=== PATIENT | male | born 1970 ===

== ENCOUNTER 2018-08-13 10:59 | Emergency (ER) | payer OTHER ==
[2018-08-13 11:21] VITALS: O2SAT 96
[2018-08-13] MEDS ORDERED: Sodium Chloride 0.9% 1,000 ML IV ONE ×2 (11:35→12:50)
[2018-08-13 11:59] LABS: BASO % 0.1 % (0.0-2.0); HEMOGLOBIN 15.5 g/dL (12.0-18.0); LYMPH # 0.5 K/uL (1.0-4.3); LYMPH % 3.5 % (20.0-40.0); MEAN CELL VOLUME 83.9 fL (80.0-94.0); MEAN CORPUSCULAR HEMOGLOBIN 28.9 pg (27.0-31.0); MEAN CORPUSCULAR HGB CONC 34.5 g/dL (33.0-37.0); MEAN PLATELET VOLUME 8.9 fL (7.2-11.7); MONO # 0.5 K/uL (0.0-0.8); MONO % 3.5 % (0.0-10.0); NEUT # 13.3 K/uL (1.8-7.0); NEUT % 92.9 % (50.0-75.0); PLATELET COUNT 199 K/uL (130-400); RBC 5.38 Mil/uL (4.40-5.90); RED CELL DISTRIBUTION WIDTH 13.3 % (11.5-14.5); WHITE BLOOD COUNT 14.3 K/uL (4.8-10.8)
[2018-08-13 12:11] LABS: URINE BACTERIA RARE (<OCC); URINE BILIRUBIN NEGATIVE (NEGATIVE); URINE BLOOD 1+ (NEGATIVE); URINE CLARITY Clear (Clear); URINE COLOR Yellow (YELLOW); URINE GLUCOSE (UA) NORMAL (Normal); URINE LEUKOCYTE ESTERASE NEG Leu/uL (Negative); URINE PROTEIN NEGATIVE (NEGATIVE); URINE UROBILINOGEN NORMAL mg/dL (0.2-1.0)
[2018-08-13 12:12] LABS: ALB/GLOB RATIO 1.5 (1.0-2.1); ALBUMIN 4.3 g/dL (3.5-5.0); ALT/SGPT 49 U/L (21-72); AST/SGOT 35 U/L (17-59); BLOOD UREA NITROGEN 18 mg/dL (9-20); CALCIUM 8.9 mg/dl (8.6-10.4); GFR NON-AFRICAN AMERICAN > 60; LIPASE 32 U/L (23-300)
--- NOTE | 2018-08-13 12:26 | C.PDOC ---
History Of Present Illness 47 y/o male presents to ED complaining of body aches, fever, chills, abdominal cramping, and N/V/D since last night. Patient states he ate out with his whole family (they are similar food) but only he has had symptoms. Patient denies chest pain, SOB, palpitations, dysuria/hematuria or sick contacts. Time Seen by Provider: 08/13/18 11:03 Chief Complaint (Nursing): Abdominal Pain History Per: Patient History/Exam Limitations: no limitations Onset/Duration Of Symptoms: Days Current Symptoms Are (Timing): Still Present Severity: Moderate Associated Symptoms: Nausea, Vomiting, Diarrhea Past Medical History Reviewed: Historical Data, Nursing Documentation, Vital Signs Vital Signs: Last Vital Signs Temp 99.5 F 08/13/18 11:16 Pulse 90 08/13/18 11:16 Resp 16 08/13/18 11:16 BP 112/82 08/13/18 11:16 Pulse Ox 96 08/13/18 11:16 - Medical History PMH: No Chronic Diseases Family History: States: No Known Family Hx - Social History Hx Alcohol Use: No Hx Substance Use: No - Immunization History Hx Tetanus Toxoid Vaccination: No Hx Influenza Vaccination: No Hx Pneumococcal Vaccination: No Review Of Systems Constitutional: Positive for: Fever, Chills Cardiovascular: Negative for: Chest Pain, Palpitations Respiratory: Negative for: Cough, Shortness of Breath Gastrointestinal: Positive for: Nausea, Vomiting, Abdominal Pain (cramping), Diarrhea Genitourinary: Negative for: Dysuria, Hematuria Musculoskeletal: Positive for: Other (Body aches) Physical Exam - Physical Exam Appears: Well, Non-toxic, Other (Uncomfortable appearing ) Skin: Warm, Dry Eye(s): bilateral: Normal Inspection Oral Mucosa: Moist Cardiovascular: Rhythm Regular Respiratory: Normal Breath Sounds, No Rales, No Rhonchi, No Wheezing Gastrointestinal/Abdominal: Bowel Sounds, Soft, Tenderness ((+) TTP at epigastric area), No Distention, No Guarding, No Rebound, Other ((-) McBurney's; (-) Sim's) Back: No CVA Tenderness Neurological/Psych: Oriented x3 Gait: Steady ED Course And Treatment - Laboratory Results Result Diagrams: 08/13/18 14:56 08/13/18 11:53 O2 Sat by Pulse Oximetry: 96 (RA) Pulse Ox Interpretation: Normal Progress Note: Bloodwork, UA ordered and reviewed. Patient given IV NS bolus, IV pepcid. Reevaluation Time: 15:00 Reassessment Condition: Improved (Patient reassessed, is resting comfortably and states he feels better. CBC improved after hydration, no bandemia. On exam, abdomen is soft and nontender. Rxs for zofran and bentyl given. Patient instructed to drink plenty of clear fluids and follow up with PMD/clinic in 1-2 days. He understands he should return to ED if symptoms worsen.) Disposition Counseled Patient/Family Regarding: Studies Performed, Diagnosis, Need For Followup, Rx Given - Disposition Referrals: [facility] [Outside] Disposition: HOME/ ROUTINE Disposition Time: 15:15 Condition: STABLE Additional Instructions: FOLLOW UP WITH YOUR DOCTOR OR CLINIC IN 1-2 DAYS USE MEDICATIONS NEEDED DRINK PLENTY OF CLEAR FLUIDS RETURN TO EMERGENCY ROOM IF SYMPTOMS BECOME WORSE SEGUIRSE CON [place] O CLNICA EN 1-2 BAXTER UTILICE MEDICAMENTOS LUIS SE NECESITE BEBER MUCHOS FLUIDOS MALLIKA VUELVA A LA LEOPOLDO DE EMERGENCIA SI LOS SNTOMAS SE HACEN PEOR Prescriptions: Dicyclomine [Bentyl] 20 mg PO Q6 PRN #12 tab PRN Reason: ABDOMINAL CRAMPING Ondansetron [Zofran Odt] 4 mg PO Q8 PRN #10 odt PRN Reason: Nausea/Vomiting Instructions: Viral Gastroenteritis, Adult (DC) Forms: General Discharge Instructions, [facility] (Frisian) Print Language: INDIAN - Clinical Impression Clinical Impression: Nausea & vomiting, Diarrhea - Scribe Statement The provider has reviewed the documentation as recorded by the Caty Nielsen Provider Attestation: All medical record entries made by the Moiseibelnia were at my direction and personally dictated by me. I have reviewed the chart and agree that the record accurately reflects my personal performance of the history, physical exam, medical decision making, and the department course for this patient. I have also personally directed, reviewed, and agree with the discharge instructions and disposition.
[2018-08-13 12:58] LABS: BANDS 5 % (0-2); LYMPHOCYTE 1 % (20-40); MONOCYTE 4 % (0-10); NEUTROPHIL 90 % (50-75); TOTAL CELLS COUNTED 100
[2018-08-13 12:59] LABS: PLATELET ESTIMATE NORMAL (NORMAL)
[2018-08-13 15:06] LABS: BASO % 0.3 % (0.0-2.0); HEMOGLOBIN 14.4 g/dL (12.0-18.0); LYMPH # 0.6 K/uL (1.0-4.3); LYMPH % 4.6 % (20.0-40.0); MEAN CELL VOLUME 84.4 fL (80.0-94.0); MEAN CORPUSCULAR HGB CONC 34.4 g/dL (33.0-37.0); MEAN PLATELET VOLUME 8.9 fL (7.2-11.7); MONO # 0.6 K/uL (0.0-0.8); NEUT # 11.4 K/uL (1.8-7.0); NEUT % 90.1 % (50.0-75.0); RBC 4.95 Mil/uL (4.40-5.90); RED CELL DISTRIBUTION WIDTH 13.2 % (11.5-14.5); WHITE BLOOD COUNT 12.6 K/uL (4.8-10.8)
[2018-08-13 16:24] VITALS: BP 100/63; PULSE 89; RESP 20; TEMP 99
== END 2018-08-13 16:23 | disposition home or self-care (01) ==
LOC: C.ER 10:59
DX: R11.2 Nausea with vomiting, unspecified (principal); R19.7 Diarrhea, unspecified
CPT/HCPCS: 80053; 81001; 83690; 85025; 96361; 96374; 99284; J7030